=== PATIENT | female | born 1970 | race Native Hawaiian/Other Pacific Islander ===

== ENCOUNTER → 2017-03-31 | Outpatient (CLI) | payer BC, OTHER ==
[2017-03-31 09:44] LABS: BASOPHILS % (AUTO) 0.5 % (0.0-2.0); EOSINOPHILS # (AUTO) 0.1 K/uL (0.0-0.7); EOSINOPHILS % (AUTO) 2.4 % (0.0-7.0); HEMATOCRIT 37.3 % (31.2-41.9); LYMPHOCYTES # (AUTO) 1.7 K/uL (20.0-40.0); MEAN CORPUSCULAR HEMOGLOBIN 32.8 uug (24.7-32.8); MEAN CORPUSCULAR HGB CONC 35 g/dL (32.3-35.6); MEAN CORPUSCULAR VOLUME 94.4 fL (75.5-95.3); MONOCYTES # (AUTO) 0.3 K/uL (2.0-10.0); NEUTROPHILS # (AUTO) 3.5 K/uL (1.8-8.9); NEUTROPHILS % (AUTO) 61.1 % (38.5-71.5); PLATELET COUNT (AUTO) 352 K/uL (179-408); RED BLOOD CELL COUNT(AUTO) 3.96 MIL/uL (3.63-4.92); WHITE BLOOD COUNT (AUTO) 5.7 K/uL (3.8-11.8)
[2017-03-31 09:48] LABS: *BILIRUBIN,URIN NEGATIVE (NEGATIVE); *BLOOD, URINE 2+ (NEGATIVE); *CLARITY,URINE CLEAR (CLEAR); *COLOR,URINE YELLOW (YELLOW); *KETONES,URINE NEGATIVE (NEGATIVE); *PROTEIN,URINE NEGATIVE (NEGATIVE); *UROBILINOGEN,URINE 0.2 E.U./dl (NORMAL); LEUKOCYTE ESTERASE ,URINE NEGATIVE (NEGATIVE); NITRITE, URINE NEGATIVE (NEGATIVE); PH,URINE 6.5 (5.0-8.0); UGLUCOSE NEGATIVE (NEGATIVE)
[2017-03-31 10:01] LABS: BILIRUBIN,TOTAL 0.6 mg/dL (0.2-1.0); CREATININE 0.6 mg/dL (0.6-1.3); POTASSIUM 3.7 mmol/L (3.5-5.1); TOTAL PROTEIN, SERUM 8.2 g/dL (6.4-8.2)
[2017-03-31 10:04] LABS: BACTERIA,URINE NONE SEEN /HPF (NONE SEEN); RBC,URINE 20-50 /HPF (0-3); SQUAMOUS EPITHELIAL CELL,UR FEW /HPF (NONE SEEN); WBC,URINE 0-3 /HPF (0-3)
[2017-03-31 10:22] LABS: THYROID STIMULATING HORMONE 2.586 mIU/mL (0.358-3.740)
== END | disposition home or self-care (01) ==
LOC: LAB 08:23
PROVIDERS: ATTEND Family Medicine
DX: Z00.01 Encounter for general adult medical examination with abnormal findings (principal)
CPT/HCPCS: 36415; 84443; 85025

== ENCOUNTER 2017-12-08 07:24 | Outpatient (CLI) | payer BC, OTHER ==
[2017-12-09 08:06] LABS: THYROID PEROXIDASE (TPO) AB 10 IU/mL (0-34)
== END 2017-12-08 23:59 | disposition home or self-care (01) ==
LOC: LAB 07:24
PROVIDERS: ATTEND Family Medicine
DX: E07.9 Disorder of thyroid, unspecified (principal); M54.2 Cervicalgia
CPT/HCPCS: 36415; 84443

== ENCOUNTER 2017-12-09 08:44 | Outpatient (CLI) | payer BC, OTHER | END 2017-12-09 23:59 | disposition home or self-care (01) | LOC: US 08:44 | PROVIDERS: ATTEND Family Medicine | DX: E07.9 Disorder of thyroid, unspecified (principal); M54.2 Cervicalgia ==

== ENCOUNTER 2020-11-13 10:23 | Outpatient (CLI) | payer BC, OTHER | END 2020-11-13 23:59 | disposition home or self-care (01) | LOC: US 10:23 | PROVIDERS: ATTEND Family Medicine | DX: M79.605 Pain in left leg (principal) ==

== ENCOUNTER 2021-10-22 03:05 | Day surgery (SDC) | payer BC, OTHER ==
[~2021-10-22] VITALS: Ht 182.9 cm; Wt 81.6 kg
[2021-10-22] MEDS ORDERED: EPINEPHRINE 1 MG/1 ML AMP IV ONE (03:06)
[2021-10-22] MEDS ORDERED: CEFAZOLIN 2 G in IV DEXTROSE 5% 100 ML IV ONE (04:15)
[2021-10-22 05:02] LABS: CREATININE 0.8 mg/dL (0.6-1.3); POTASSIUM 3.5 mmol/L (3.5-5.1)
[2021-10-22] MEDS ORDERED: QUIN20TA PO (05:20)
== END 2021-10-22 10:28 | disposition home or self-care (01) ==
LOC: DS 03:05
PROVIDERS: ATTEND Internal Medicine Gastroenterology
PROC: 0DJD8ZZ Inspection of Lower Intestinal Tract, Via Natural or Artificial Opening Endoscopic (ICD-10-PCS; principal; 2021-10-22)
DX: Z00.00 Encounter for general adult medical examination without abnormal findings (principal)
CPT/HCPCS: 45378; 80048; 36415; J0690; J0171

== ENCOUNTER 2024-02-09 13:35 | Emergency (ER) | payer BC, OTHER ==
[~2024-02-09] VITALS: Ht 152.4 cm; Wt 52.2 kg
[~2024-02-09 13:35] MED LIST: QUIN20TA PO
[2024-02-09 13:39] VITALS: O2SAT 99
[2024-02-09] MEDS ORDERED: DEXT15LI PO (14:02)
[2024-02-09] MEDS ORDERED: BENZ-13 PO (14:02)
== END 2024-02-09 14:06 | disposition home or self-care (01) ==
LOC: ER 13:35
DX: R05.3 Chronic cough (principal); Z79.899 Other long term (current) drug therapy; Z90.710 Acquired absence of both cervix and uterus; Z88.0 Allergy status to penicillin
CPT/HCPCS: A4606; A4663